=== PATIENT | male | born 1950 | race Caucasian/White ===

== ENCOUNTER 2021-01-16 09:24 | Inpatient (IN) | payer MEDICARE, OTHER ==
[2021-01-16 10:17] VITALS: BMI 36.2
[2021-01-16] MEDS ORDERED: Piperacillin/Tazobactam 3.375 GM in Sodium Chloride 0.9% 100 ML IVPB SCH (10:30)
[2021-01-16] MEDS ORDERED: Ondansetron PF 4 MG/2 ML Vial IVP PRN (10:40)
[2021-01-16] MEDS ORDERED: HYDROcodone/Acetaminophen 5/325 mg Tablet PO PRN (10:40)
[2021-01-16] MEDS ORDERED: Acetaminophen 325 MG TAB PO PRN (10:40)
[2021-01-16] MEDS ORDERED: Dextrose 50% Abboject 50 ML SYRINGE SLOW IVP PRN (10:42)
[2021-01-16] MEDS ORDERED: Dextrose 5% in Water 1,000 ML IV PRN (10:42)
[2021-01-16] MEDS ORDERED: FLU VACC QS2021-22(65YR UP)/PF 240 MCG/0.7 ML SYRINGE IM ONE (10:45)
[2021-01-16 13:07] LABS: #Basophils 0.1 10x3/uL (0.0-0.2); #Eosinphils 0.3 10x3/uL (0.0-0.5); #Monocytes 0.6 10x3/uL (0.0-1.1); #Neutrophils 4.6 10x3/uL (1.5-8.4); %Basophils 0.9 % (0.0-2.0); %Eosinophils 3.7 % (0.0-6.0); %Lymphocytes 31.7 % (18.0-47.0); %Monocytes 7.3 % (0.0-10.0); Hemoglobin 12.7 g/dL (13.5-17.5); Mean Corpuscular HGB CONC 33.2 g/dL (32.0-36.0); Mean Corpuscular Hemoglobin 32.6 pg (27.0-33.0); Mean Corpuscular Volume 98.2 fl (81.2-95.1); Mean Platelet Volume 9.8 fl (7.4-10.4); Platelet Count 367 10x3/uL (150-450); RBC Distribution Width 12.6 % (11.5-14.5); Red Blood Cell (RBC) Count 3.89 10x6/uL (4.32-5.72); White Blood Cell (WBC) Count 8.1 10x3/uL (3.5-10.5)
[2021-01-16] MEDS ORDERED: VANCOMYCIN 2 GRAM/400 ML BAG 2 GM in Premix Bag 1 BAG IVPB SCH (13:30)
[2021-01-16 13:53] LABS: ALT (SGPT) 23 U/L (8-55); AST (SGOT) 29 U/L (5-34); Albumin 3.8 g/dL (3.4-4.8); Alkaline Phosphatase 89 U/L (40-110); Anion Gap 15 mmol/L (10-20); BUN (Urea Nitrogen) 22 mg/dL (8.4-25.7); Bilirubin, Total 0.3 mg/dL (0.2-1.2); Calc. Creatinine Clearance 68 mL/min (70-130); Calcium 9.4 mg/dL (7.8-10.44); Carbon Dioxide 25 mmol/L (23-31); Chloride 102 mmol/L (98-107); Glucose 227 mg/dL (83-110); Potassium 4.5 mmol/L (3.5-5.1); Protein, Total 6.8 g/dL (5.8-8.1); Sodium 137 mmol/L (136-145)
[2021-01-16 14:38] LABS: ALT (SGPT) 25 U/L (8-55); AST (SGOT) 31 U/L (5-34); Albumin 3.9 g/dL (3.4-4.8); Alkaline Phosphatase 88 U/L (40-110); Anion Gap 12 mmol/L (10-20); BUN (Urea Nitrogen) 21 mg/dL (8.4-25.7); Bilirubin, Total 0.4 mg/dL (0.2-1.2); Calc. Creatinine Clearance 67 mL/min (70-130); Calcium 9.6 mg/dL (7.8-10.44); Carbon Dioxide 26 mmol/L (23-31); Chloride 103 mmol/L (98-107); Globulin 3.3 g/dL (2.4-3.5); Glucose 187 mg/dL (83-110); Potassium 4.3 mmol/L (3.5-5.1); Protein, Total 7.2 g/dL (5.8-8.1); Sodium 137 mmol/L (136-145)
[2021-01-16] MEDS: Piperacillin/Tazobactam 3.375 GM in Sodium Chloride 0.9% 100 ML IVPB SCH ×2 (14:48→22:10)
[2021-01-16] MEDS ORDERED: Piperacillin/Tazobactam 3.375 GM VIAL ONE (14:49)
[2021-01-16] MEDS: HumaLOG 300 UNITS/3 ML VIAL SC PRN (16:28)
[2021-01-16] MEDS: Amitriptyline HCl 25 MG TAB PO SCH (22:02)
[2021-01-16] MEDS: DULoxetine 30 MG CAP PO SCH (22:02)
[2021-01-16] MEDS: Atorvastatin Calcium 20 MG TAB PO SCH (22:03)
[2021-01-16] MEDS: Famotidine 20 MG TAB PO SCH ×2 (22:03→22:05)
[2021-01-16] MEDS: traZODone HCl 50 MG TAB PO SCH ×2 (22:03→22:05)
[2021-01-16] MEDS: Ezetimibe 10 MG TAB PO SCH (22:03)
[2021-01-16] MEDS: Lantus 1000 UNITS/10 ML VIAL SC SCH (22:31)
[2021-01-17] MEDS: Famotidine 20 MG TAB PO SCH ×3 (04:06→21:02)
[2021-01-17 05:54] LABS: #Basophils 0.1 10x3/uL (0.0-0.2); #Eosinphils 0.4 10x3/uL (0.0-0.5); #Monocytes 0.6 10x3/uL (0.0-1.1); #Neutrophils 3.2 10x3/uL (1.5-8.4); %Basophils 1.2 % (0.0-2.0); %Eosinophils 6.3 % (0.0-6.0); %Lymphocytes 37.6 % (18.0-47.0); %Neutrophils 46.6 % (40.0-75.0); Hemoglobin 12.1 g/dL (13.5-17.5); Mean Corpuscular HGB CONC 34.1 g/dL (32.0-36.0); Mean Corpuscular Hemoglobin 33.2 pg (27.0-33.0); Mean Corpuscular Volume 97.3 fl (81.2-95.1); Mean Platelet Volume 9.7 fl (7.4-10.4); Platelet Count 309 10x3/uL (150-450); RBC Distribution Width 12.7 % (11.5-14.5); Red Blood Cell (RBC) Count 3.65 10x6/uL (4.32-5.72); White Blood Cell (WBC) Count 6.9 10x3/uL (3.5-10.5)
[2021-01-17 06:11] LABS: ALT (SGPT) 21 U/L (8-55); AST (SGOT) 26 U/L (5-34); Albumin 3.4 g/dL (3.4-4.8); Alkaline Phosphatase 66 U/L (40-110); Anion Gap 12 mmol/L (10-20); BUN (Urea Nitrogen) 21 mg/dL (8.4-25.7); Bilirubin, Total 0.4 mg/dL (0.2-1.2); Calc. Creatinine Clearance 61 mL/min (70-130); Calcium 8.7 mg/dL (7.8-10.44); Carbon Dioxide 24 mmol/L (23-31); Chloride 106 mmol/L (98-107); Globulin 2.2 g/dL (2.4-3.5); Glucose 240 mg/dL (83-110); Potassium 4.9 mmol/L (3.5-5.1); Protein, Total 5.6 g/dL (5.8-8.1); Sodium 137 mmol/L (136-145)
[2021-01-17] MEDS: Piperacillin/Tazobactam 3.375 GM in Sodium Chloride 0.9% 100 ML IVPB SCH ×3 (06:36→21:02)
[2021-01-17] MEDS: glipiZIDE 10 MG TAB PO SCH (09:26)
[2021-01-17] MEDS: Folic Acid/Vit B Comp W-C PO SCH (09:29)
[2021-01-17] MEDS: Fenofibrate Nanocrystallized 145 MG TAB PO SCH (09:30)
[2021-01-17 10:36] LABS: Cardiac Risk 2.6 (Less than 4.5)
[2021-01-17 11:01] LABS: SARS-CoV-2 PCR by NAA Not Detected (NotDetected)
[2021-01-17 13:21] LABS: Hemoglobin A1c 11.3 % (4.0-6.0)
[2021-01-17] MEDS ORDERED: Lidocaine 1% (PF) 30 ML VIAL ONE (14:17)
[2021-01-17] MEDS ORDERED: Bupivacaine PF 0.5% 30 ML VIAL ONE (14:17)
[2021-01-17] MEDS ORDERED: Neomycin-Polymyxin 1 ML AMP ONE ×3 (14:18→15:35)
[2021-01-17] MEDS ORDERED: Sodium Bicarbonate 2.5 MEQ/5 ML VIAL ONE (14:22)
[2021-01-17] MEDS ORDERED: VANCOMYCIN 2 GRAM/400 ML BAG 2 GM in Premix Bag 1 BAG IVPB SCH (15:00)
[2021-01-17] MEDS ORDERED: VANCOMYCIN 1.75 GM/350 ML BAG 1.75 GM in Premix Bag 1 BAG IVPB SCH (15:00)
[2021-01-17] MEDS ORDERED: Ketamine 50 MG/ML (10ML VIAL) ONE (15:12)
[2021-01-17] MEDS ORDERED: PROPOFOL 60 ML ONE (15:13)
[2021-01-17] MEDS ORDERED: Sodium Chloride 0.9% 10 ML ONE (15:13)
[2021-01-17] MEDS ORDERED: traMADol HCl 50 MG TAB PO PRN (18:52)
[2021-01-17] MEDS: DULoxetine 30 MG CAP PO SCH (21:00)
[2021-01-17] MEDS: Atorvastatin Calcium 20 MG TAB PO SCH (21:00)
[2021-01-17] MEDS: Ezetimibe 10 MG TAB PO SCH (21:00)
[2021-01-17] MEDS: Amitriptyline HCl 25 MG TAB PO SCH (21:00)
[2021-01-17] MEDS: traZODone HCl 50 MG TAB PO SCH (21:01)
[2021-01-17] MEDS: Lantus 1000 UNITS/10 ML VIAL SC SCH (21:32)
[2021-01-18] MEDS: Piperacillin/Tazobactam 3.375 GM in Sodium Chloride 0.9% 100 ML IVPB SCH ×3 (05:43→22:07)
[2021-01-18] MEDS: Famotidine 20 MG TAB PO SCH ×2 (09:37→21:14)
[2021-01-18] MEDS: Folic Acid/Vit B Comp W-C PO SCH (09:38)
[2021-01-18] MEDS: glipiZIDE 10 MG TAB PO SCH (09:38)
[2021-01-18] MEDS: Fenofibrate Nanocrystallized 145 MG TAB PO SCH (09:41)
[2021-01-18] MEDS: HumaLOG 300 UNITS/3 ML VIAL SC PRN ×3 (12:45→21:15)
[2021-01-18 14:54] LABS: Vancomycin, Trough 3.5 ug/mL
[2021-01-18] MEDS ORDERED: Lantus 1000 UNITS/10 ML VIAL SC SCH (21:00)
[2021-01-18] MEDS: Amitriptyline HCl 25 MG TAB PO SCH (21:13)
[2021-01-18] MEDS: Atorvastatin Calcium 20 MG TAB PO SCH (21:13)
[2021-01-18] MEDS: DULoxetine 30 MG CAP PO SCH (21:13)
[2021-01-18] MEDS: Ezetimibe 10 MG TAB PO SCH (21:13)
[2021-01-18] MEDS: traZODone HCl 50 MG TAB PO SCH (22:11)
[2021-01-19 04:21] LABS: Anion Gap 11 mmol/L (10-20); BUN (Urea Nitrogen) 19 mg/dL (8.4-25.7); Calc. Creatinine Clearance 62 mL/min (70-130); Calcium 9.2 mg/dL (7.8-10.44); Carbon Dioxide 25 mmol/L (23-31); Chloride 106 mmol/L (98-107); Glucose 252 mg/dL (83-110); Potassium 4.8 mmol/L (3.5-5.1); Sodium 137 mmol/L (136-145)
[2021-01-19] MEDS: Piperacillin/Tazobactam 3.375 GM in Sodium Chloride 0.9% 100 ML IVPB SCH ×2 (06:46→14:31)
[2021-01-19] MEDS: HumaLOG 300 UNITS/3 ML VIAL SC PRN ×3 (06:54→17:10)
[2021-01-19] MEDS: Fenofibrate Nanocrystallized 145 MG TAB PO SCH (09:19)
[2021-01-19] MEDS: glipiZIDE 10 MG TAB PO SCH (09:19)
[2021-01-19] MEDS: Folic Acid/Vit B Comp W-C PO SCH (09:19)
[2021-01-19] MEDS: Famotidine 20 MG TAB PO SCH (09:19)
[2021-01-19 16:47] VITALS: BP 121/59; TEMP 99
[2021-01-20 14:40] LABS: Fungus Stain Final report (.)
== END 2021-01-19 18:03 | disposition home or self-care (01) | DRG 617 ==
LOC: UNDOADMIN 09:24 → CSHTELE 09:24
PROVIDERS: ADMIT Family Medicine; ATTEND Family Medicine
PROC: XW03396 Introduction of Ceftolozane/Tazobactam Anti-infective into Peripheral Vein, Percutaneous Approach, New Technology Group 6 (ICD-10-PCS; 2021-01-16)
PROC: 0Y6Q0Z3 Detachment at Left 1st Toe, Low, Open Approach (ICD-10-PCS; principal; 2021-01-17)
DX: E11.69 Type 2 diabetes mellitus with other specified complication (principal); M86.8X8 Other osteomyelitis, other site; L97.429 Non-pressure chronic ulcer of left heel and midfoot with unspecified severity; E11.621 Type 2 diabetes mellitus with foot ulcer; E11.42 Type 2 diabetes mellitus with diabetic polyneuropathy; E78.5 Hyperlipidemia, unspecified; I25.10 Atherosclerotic heart disease of native coronary artery without angina pectoris; E55.9 Vitamin D deficiency, unspecified; E53.9 Vitamin B deficiency, unspecified; N18.32 Chronic kidney disease, stage 3b; Z20.822 Contact with and (suspected) exposure to COVID-19; E11.22 Type 2 diabetes mellitus with diabetic chronic kidney disease; E78.2 Mixed hyperlipidemia; E78.00 Pure hypercholesterolemia, unspecified; M89.58 Osteolysis, other site; B95.8 Unspecified staphylococcus as the cause of diseases classified elsewhere; E11.51 Type 2 diabetes mellitus with diabetic peripheral angiopathy without gangrene; M19.90 Unspecified osteoarthritis, unspecified site; E66.9 Obesity, unspecified; K21.9 Gastro-esophageal reflux disease without esophagitis; I12.9 Hypertensive chronic kidney disease with stage 1 through stage 4 chronic kidney disease, or unspecified chronic kidney disease; Z90.49 Acquired absence of other specified parts of digestive tract; Z79.82 Long term (current) use of aspirin; Z79.4 Long term (current) use of insulin; Z79.899 Other long term (current) drug therapy; Z87.891 Personal history of nicotine dependence; Z98.42 Cataract extraction status, left eye; Z98.41 Cataract extraction status, right eye; Z88.7 Allergy status to serum and vaccine; Z68.36 Body mass index [BMI] 36.0-36.9, adult
CPT/HCPCS: 36415; 36416; 71045; 80048; 80053; 80061; 80202; 83036; 85025; 85652; 86140; 87070; 87102; 87116; 87205; 87206; 88305; 93005; 93010; C1713; J1815; J2001; J2543; J2704; J3370; J3490; S0020; U0003; U0005

== ENCOUNTER 2021-01-23 10:29 | Outpatient (CLI) | payer MEDICARE, OTHER | END 2021-01-23 10:30 | disposition home or self-care (01) | LOC: CSHWCC 10:29 | PROVIDERS: ATTEND Nurse Practitioner Family | DX: T81.89XA Other complications of procedures, not elsewhere classified, initial encounter (principal); B95.2 Enterococcus as the cause of diseases classified elsewhere; E11.40 Type 2 diabetes mellitus with diabetic neuropathy, unspecified; E11.65 Type 2 diabetes mellitus with hyperglycemia; E66.3 Overweight; I95.9 Hypotension, unspecified; L03.818 Cellulitis of other sites; L08.89 Other specified local infections of the skin and subcutaneous tissue; Z89.412 Acquired absence of left great toe | CPT/HCPCS: 97607; 99203; G0463 ==

== ENCOUNTER 2021-01-26 15:00 | Outpatient (CLI) | payer MEDICARE, OTHER | END 2021-01-26 15:01 | disposition home or self-care (01) | LOC: CSHWCC 15:00 | PROVIDERS: ATTEND Nurse Practitioner Family | DX: T81.89XD Other complications of procedures, not elsewhere classified, subsequent encounter (principal); L03.818 Cellulitis of other sites; E11.40 Type 2 diabetes mellitus with diabetic neuropathy, unspecified; E11.65 Type 2 diabetes mellitus with hyperglycemia; E66.3 Overweight; I95.9 Hypotension, unspecified; B95.2 Enterococcus as the cause of diseases classified elsewhere; L08.89 Other specified local infections of the skin and subcutaneous tissue; Z89.412 Acquired absence of left great toe ==

== ENCOUNTER 2021-02-02 14:54 | Outpatient (CLI) | payer MEDICARE, OTHER | END 2021-02-02 14:55 | disposition home or self-care (01) | LOC: CSHWCC 14:54 | PROVIDERS: ATTEND Nurse Practitioner Family | DX: T81.89XA Other complications of procedures, not elsewhere classified, initial encounter (principal); B95.2 Enterococcus as the cause of diseases classified elsewhere; E11.40 Type 2 diabetes mellitus with diabetic neuropathy, unspecified; E11.65 Type 2 diabetes mellitus with hyperglycemia; E66.3 Overweight; I95.9 Hypotension, unspecified; L03.818 Cellulitis of other sites; Z89.412 Acquired absence of left great toe ==

== ENCOUNTER 2021-02-06 08:44 | Outpatient (CLI) | payer MEDICARE, OTHER | END 2021-02-06 08:45 | disposition home or self-care (01) | LOC: CSHWCC 08:44 | PROVIDERS: ATTEND Nurse Practitioner Family | DX: T81.89XD Other complications of procedures, not elsewhere classified, subsequent encounter (principal); L03.818 Cellulitis of other sites; E11.40 Type 2 diabetes mellitus with diabetic neuropathy, unspecified; E11.65 Type 2 diabetes mellitus with hyperglycemia; B95.2 Enterococcus as the cause of diseases classified elsewhere; I95.9 Hypotension, unspecified; L08.89 Other specified local infections of the skin and subcutaneous tissue; E66.3 Overweight; Z89.412 Acquired absence of left great toe | CPT/HCPCS: 97607 ==

== ENCOUNTER 2021-02-09 08:54 | Outpatient (CLI) | payer MEDICARE, OTHER | END 2021-02-09 08:55 | disposition home or self-care (01) | LOC: CSHWCC 08:54 | PROVIDERS: ATTEND Nurse Practitioner Family | DX: T81.89XA Other complications of procedures, not elsewhere classified, initial encounter (principal); B95.2 Enterococcus as the cause of diseases classified elsewhere; E11.40 Type 2 diabetes mellitus with diabetic neuropathy, unspecified; E11.65 Type 2 diabetes mellitus with hyperglycemia; E66.3 Overweight; I95.9 Hypotension, unspecified; L03.818 Cellulitis of other sites; L08.89 Other specified local infections of the skin and subcutaneous tissue; Z89.412 Acquired absence of left great toe | CPT/HCPCS: 11042; 97605 ==

== ENCOUNTER 2021-02-16 11:03 | Outpatient (CLI) | payer MEDICARE, OTHER | END 2021-02-16 11:04 | disposition home or self-care (01) | LOC: CSHWCC 11:03 | PROVIDERS: ATTEND Nurse Practitioner Family | DX: T81.89XS Other complications of procedures, not elsewhere classified, sequela (principal); I95.9 Hypotension, unspecified; E11.40 Type 2 diabetes mellitus with diabetic neuropathy, unspecified; E11.65 Type 2 diabetes mellitus with hyperglycemia; E66.3 Overweight; L03.818 Cellulitis of other sites; B95.2 Enterococcus as the cause of diseases classified elsewhere; L08.89 Other specified local infections of the skin and subcutaneous tissue; Z89.412 Acquired absence of left great toe ==

== ENCOUNTER 2021-02-20 09:15 | Outpatient (CLI) | payer MEDICARE, OTHER | END 2021-02-20 09:16 | disposition home or self-care (01) | LOC: CSHWCC 09:15 | PROVIDERS: ATTEND Nurse Practitioner Family | DX: T81.89XD Other complications of procedures, not elsewhere classified, subsequent encounter (principal); E11.65 Type 2 diabetes mellitus with hyperglycemia; E11.40 Type 2 diabetes mellitus with diabetic neuropathy, unspecified; B95.2 Enterococcus as the cause of diseases classified elsewhere; E66.3 Overweight; I95.9 Hypotension, unspecified; L03.818 Cellulitis of other sites; L08.89 Other specified local infections of the skin and subcutaneous tissue; Z89.412 Acquired absence of left great toe ==

== ENCOUNTER 2021-02-23 12:35 | Outpatient (CLI) | payer MEDICARE, OTHER | END 2021-02-23 12:36 | disposition home or self-care (01) | LOC: CSHWCC 12:35 | PROVIDERS: ATTEND Nurse Practitioner Family | DX: T81.89XD Other complications of procedures, not elsewhere classified, subsequent encounter (principal); E11.40 Type 2 diabetes mellitus with diabetic neuropathy, unspecified; E11.65 Type 2 diabetes mellitus with hyperglycemia; L03.818 Cellulitis of other sites; B95.2 Enterococcus as the cause of diseases classified elsewhere; E66.3 Overweight; I95.9 Hypotension, unspecified; L08.89 Other specified local infections of the skin and subcutaneous tissue; Z89.412 Acquired absence of left great toe ==

== ENCOUNTER 2021-02-27 14:55 | Outpatient (CLI) | payer MEDICARE, OTHER | END 2021-02-27 14:56 | disposition home or self-care (01) | LOC: CSHWCC 14:55 | PROVIDERS: ATTEND Nurse Practitioner Family | DX: T81.89XD Other complications of procedures, not elsewhere classified, subsequent encounter (principal); I95.9 Hypotension, unspecified; L08.89 Other specified local infections of the skin and subcutaneous tissue; B95.2 Enterococcus as the cause of diseases classified elsewhere; E11.40 Type 2 diabetes mellitus with diabetic neuropathy, unspecified; E11.65 Type 2 diabetes mellitus with hyperglycemia; E66.3 Overweight; L03.818 Cellulitis of other sites; Z89.412 Acquired absence of left great toe ==

== ENCOUNTER 2021-03-06 15:28 | Outpatient (CLI) | payer MEDICARE, OTHER | END 2021-03-06 15:29 | disposition home or self-care (01) | LOC: CSHWCC 15:28 | PROVIDERS: ATTEND Nurse Practitioner Family | DX: T81.89XD Other complications of procedures, not elsewhere classified, subsequent encounter (principal) ==

== ENCOUNTER 2021-03-30 09:42 | Outpatient (CLI) | payer MEDICARE, OTHER | END 2021-03-30 09:43 | disposition home or self-care (01) | LOC: CSHWCC 09:42 | PROVIDERS: ATTEND Nurse Practitioner Family | DX: T81.89XS Other complications of procedures, not elsewhere classified, sequela (principal) | CPT/HCPCS: 97139; G0463; 99212 ==

== ENCOUNTER 2024-01-13 08:33 | Inpatient (IN) | payer MEDICARE, OTHER ==
[2024-01-13] MEDS ORDERED: Piperacillin/Tazobactam 3.375 GM VIAL ONE (09:29)
[2024-01-13 09:40] LABS: #Basophils 0.04 10x3/uL (0.0-0.2); #Eosinophils 0.39 10x3/uL (0.0-0.5); #Monocytes 0.81 10x3/uL (0.0-1.1); #Neutrophils 5.65 10x3/uL (1.5-8.4); %Basophils 0.4 % (0.0-2.0); %Eosinophils 4.2 % (0.0-6.0); %Lymphocytes 24.6 % (18.0-47.0); %Monocytes 8.8 % (0.0-10.0); %Neutrophils 61.6 % (40.0-75.0); Hematocrit 37.2 % (38.8-50.0); Hemoglobin 12.5 g/dL (13.5-17.5); Mean Corpuscular HGB CONC 33.6 g/dL (32.0-36.0); Mean Corpuscular Hemoglobin 32.7 pg (27.0-33.0); Mean Corpuscular Volume 97.4 fL (81.2-95.1); Mean Platelet Volume 9.2 fL (7.4-10.4); Platelet Count 421 10x3/uL (150-450); RBC Distribution Width 13.8 % (11.5-14.5); Red Blood Cell (RBC) Count 3.82 10x6/uL (4.32-5.72); White Blood Cell (WBC) Count 9.2 10x3/uL (3.5-10.5)
[2024-01-13 09:51] LABS: PTT 30.7 sec (22.0-33.0); Prothrombin Time 11.3 sec (9.5-12.1)
[2024-01-13 09:52] LABS: ALT (SGPT) 21 U/L (8-55); AST (SGOT) 24 U/L (5-34); Albumin 3.3 g/dL (3.4-4.8); Alkaline Phosphatase 53 U/L (40-110); Anion Gap 14 mmol/L (10-20); BUN (Urea Nitrogen) 41 mg/dL (8.4-25.7); Bilirubin, Total 0.4 mg/dL (0.2-1.2); Calc. Creatinine Clearance 0 mL/min (70-130); Calcium 10.2 mg/dL (7.8-10.44); Carbon Dioxide 24 mmol/L (23-31); Chloride 104 mmol/L (98-107); Estimated GFR 26; Globulin 4.4 g/dL (2.4-3.5); Glucose 69 mg/dL (83-110); Potassium 3.8 mmol/L (3.5-5.1); Protein, Total 7.7 g/dL (5.8-8.1); Sodium 138 mmol/L (136-145)
[2024-01-13] MEDS ORDERED: Acetaminophen 325 MG TAB PO PRN (12:40)
[2024-01-13] MEDS ORDERED: Dextrose 5% in Water 1,000 ML IV PRN (12:43)
[2024-01-13] MEDS ORDERED: HYDROcodone/Acetaminophen 5/325 mg Tablet PO PRN (12:43)
[2024-01-13] MEDS ORDERED: Glucagon 1 MG/ML KIT IM PRN (12:43)
[2024-01-13 14:35] VITALS: BMI 35.9
[2024-01-13] MEDS: Sodium Bicarbonate 50 MEQ, Admixture Fee 1 EACH in Sodium Chloride 0.45% 1,000 ML IV SCH (17:42)
[2024-01-13] MEDS: Heparin 5,000 UNITS/ML VIAL SC SCH (17:57)
[2024-01-13] MEDS: Sodium Bicarbonate 50 MEQ in Sodium Chloride 0.45% 1,000 ML IV SCH (17:57)
[2024-01-13] MEDS: Piperacillin/Tazobactam 3.375 GM in Sodium Chloride 0.9% 100 ML IVPB SCH ×2 (18:47→22:21)
[2024-01-13] MEDS: Ezetimibe 10 MG TAB PO SCH (22:24)
[2024-01-14] MEDS: DULoxetine 60 MG CAP PO SCH
[2024-01-14 04:28] LABS: #Basophils 0.06 10x3/uL (0.0-0.2); #Eosinophils 0.37 10x3/uL (0.0-0.5); #Monocytes 0.63 10x3/uL (0.0-1.1); #Neutrophils 2.95 10x3/uL (1.5-8.4); %Basophils 0.9 % (0.0-2.0); %Eosinophils 5.7 % (0.0-6.0); %Lymphocytes 37.8 % (18.0-47.0); %Monocytes 9.7 % (0.0-10.0); %Neutrophils 45.4 % (40.0-75.0); Hematocrit 33.5 % (38.8-50.0); Hemoglobin 11.3 g/dL (13.5-17.5); Mean Corpuscular HGB CONC 33.7 g/dL (32.0-36.0); Mean Corpuscular Hemoglobin 32.9 pg (27.0-33.0); Mean Corpuscular Volume 97.7 fL (81.2-95.1); Mean Platelet Volume 9.1 fL (7.4-10.4); Platelet Count 373 10x3/uL (150-450); RBC Distribution Width 13.8 % (11.5-14.5); Red Blood Cell (RBC) Count 3.43 10x6/uL (4.32-5.72); White Blood Cell (WBC) Count 6.5 10x3/uL (3.5-10.5)
[2024-01-14 04:47] LABS: Anion Gap 12 mmol/L (10-20); BUN (Urea Nitrogen) 36 mg/dL (8.4-25.7); Calc. Creatinine Clearance 52 mL/min (70-130); Calcium 9.1 mg/dL (7.8-10.44); Carbon Dioxide 23 mmol/L (23-31); Chloride 107 mmol/L (98-107); Estimated GFR 33; Glucose 79 mg/dL (83-110); Potassium 3.7 mmol/L (3.5-5.1); Sodium 138 mmol/L (136-145)
[2024-01-14] MEDS: Piperacillin/Tazobactam 3.375 GM in Sodium Chloride 0.9% 100 ML IVPB SCH (06:16)
[2024-01-14] MEDS: Pantoprazole DR 40 MG TAB PO SCH (08:50)
[2024-01-14] MEDS: Dextrose 5 % And 0.9 % NaCl 1,000 ML IV SCH (08:51)
[2024-01-14] MEDS ORDERED: Bupivacaine PF 0.5% 30 ML VIAL ONE (12:55)
[2024-01-14] MEDS ORDERED: Neomycin-Polymyxin 1 ML AMP ONE (12:57)
[2024-01-14 13:18] LABS: Hemoglobin A1c 7.2 % (4.0-6.0)
[2024-01-14] MEDS ORDERED: fentaNYL 50 mcg/mL 1 mL Vial ONE (14:22)
[2024-01-14] MEDS ORDERED: PROPOFOL 20 ML ONE ×2 (14:22→15:18)
[2024-01-14] MEDS ORDERED: Lidocaine 1% PF 5 ML VIAL ONE (14:23)
[2024-01-14] MEDS ORDERED: Ondansetron PF 4 MG/2 ML Vial ONE (15:10)
[2024-01-14] MEDS ORDERED: Dexamethasone 4 mg/ml Vial ONE (15:10)
[2024-01-14] MEDS: Dextrose 50% Abboject 50 ML SYRINGE SLOW IVP PRN (17:09)
[2024-01-14] MEDS: Amitriptyline HCl 25 MG TAB PO SCH (20:43)
[2024-01-14] MEDS: Atorvastatin Calcium 20 MG TAB PO SCH (20:43)
[2024-01-14] MEDS: Losartan 50 MG TAB PO SCH (22:50)
[2024-01-15 04:33] LABS: #Basophils 0.02 10x3/uL (0.0-0.2); #Monocytes 0.63 10x3/uL (0.0-1.1); #Neutrophils 8.24 10x3/uL (1.5-8.4); %Basophils 0.2 % (0.0-2.0); %Lymphocytes 14.7 % (18.0-47.0); %Neutrophils 78.8 % (40.0-75.0); Hematocrit 33.2 % (38.8-50.0); Hemoglobin 11.1 g/dL (13.5-17.5); Mean Corpuscular HGB CONC 33.4 g/dL (32.0-36.0); Mean Corpuscular Volume 98.8 fL (81.2-95.1); Mean Platelet Volume 9.4 fL (7.4-10.4); Platelet Count 390 10x3/uL (150-450); RBC Distribution Width 13.9 % (11.5-14.5); Red Blood Cell (RBC) Count 3.36 10x6/uL (4.32-5.72); White Blood Cell (WBC) Count 10.5 10x3/uL (3.5-10.5)
[2024-01-15 04:40] LABS: Anion Gap 13 mmol/L (10-20); BUN (Urea Nitrogen) 27 mg/dL (8.4-25.7); Calc. Creatinine Clearance 52 mL/min (70-130); Calcium 8.9 mg/dL (7.8-10.44); Carbon Dioxide 21 mmol/L (23-31); Chloride 107 mmol/L (98-107); Estimated GFR 33; Glucose 244 mg/dL (83-110); Potassium 4.1 mmol/L (3.5-5.1); Sodium 137 mmol/L (136-145)
[2024-01-15] MEDS: Insulin Lispro 100 UNIT/ML 10 ML VIAL SC PRN (06:23)
[2024-01-15] MEDS: Aspirin 81 mg Enteric Coated Tablet PO SCH (10:19)
[2024-01-15] MEDS: Fenofibrate Nanocrystallized 145 MG TAB PO SCH (10:19)
[2024-01-15] MEDS: Multivit, Therapeutic 1 TAB PO SCH (10:19)
[2024-01-15 12:45] VITALS: BMI 35.9
[2024-01-15] MEDS: Carvedilol 6.25 MG TAB PO SCH (17:41)
[2024-01-15] MEDS: Lantus 1000 UNITS/10 ML VIAL SC SCH (20:30)
[2024-01-16 04:24] LABS: #Basophils 0.05 10x3/uL (0.0-0.2); #Eosinophils 0.15 10x3/uL (0.0-0.5); #Monocytes 0.66 10x3/uL (0.0-1.1); #Neutrophils 3.91 10x3/uL (1.5-8.4); %Basophils 0.6 % (0.0-2.0); %Eosinophils 1.9 % (0.0-6.0); %Lymphocytes 39.8 % (18.0-47.0); %Monocytes 8.3 % (0.0-10.0); Hematocrit 30.2 % (38.8-50.0); Hemoglobin 10.2 g/dL (13.5-17.5); Mean Corpuscular HGB CONC 33.8 g/dL (32.0-36.0); Mean Corpuscular Hemoglobin 33.9 pg (27.0-33.0); Mean Corpuscular Volume 100.3 fL (81.2-95.1); Mean Platelet Volume 9.5 fL (7.4-10.4); Platelet Count 362 10x3/uL (150-450); RBC Distribution Width 14.2 % (11.5-14.5); Red Blood Cell (RBC) Count 3.01 10x6/uL (4.32-5.72)
[2024-01-16 04:29] LABS: Anion Gap 11 mmol/L (10-20); BUN (Urea Nitrogen) 26 mg/dL (8.4-25.7); Calc. Creatinine Clearance 58 mL/min (70-130); Calcium 8.7 mg/dL (7.8-10.44); Carbon Dioxide 22 mmol/L (23-31); Chloride 109 mmol/L (98-107); Estimated GFR 38; Glucose 165 mg/dL (83-110); Sodium 138 mmol/L (136-145)
[2024-01-17 04:05] LABS: #Basophils 0.04 10x3/uL (0.0-0.2); #Eosinophils 0.44 10x3/uL (0.0-0.5); #Monocytes 0.65 10x3/uL (0.0-1.1); #Neutrophils 3.38 10x3/uL (1.5-8.4); %Basophils 0.5 % (0.0-2.0); %Lymphocytes 38.1 % (18.0-47.0); %Monocytes 8.9 % (0.0-10.0); %Neutrophils 46.2 % (40.0-75.0); Hematocrit 31.6 % (38.8-50.0); Hemoglobin 10.6 g/dL (13.5-17.5); Mean Corpuscular HGB CONC 33.5 g/dL (32.0-36.0); Mean Corpuscular Hemoglobin 33.5 pg (27.0-33.0); Mean Platelet Volume 9.5 fL (7.4-10.4); Platelet Count 364 10x3/uL (150-450); RBC Distribution Width 14.1 % (11.5-14.5); Red Blood Cell (RBC) Count 3.16 10x6/uL (4.32-5.72); White Blood Cell (WBC) Count 7.3 10x3/uL (3.5-10.5)
[2024-01-17 04:13] LABS: Anion Gap 12 mmol/L (10-20); BUN (Urea Nitrogen) 24 mg/dL (8.4-25.7); Calc. Creatinine Clearance 62 mL/min (70-130); Calcium 8.9 mg/dL (7.8-10.44); Carbon Dioxide 22 mmol/L (23-31); Chloride 108 mmol/L (98-107); Estimated GFR 41; Glucose 135 mg/dL (83-110); Potassium 3.8 mmol/L (3.5-5.1); Sodium 138 mmol/L (136-145)
[2024-01-17 12:31] VITALS: BP 128/62; TEMP 97.9
== END 2024-01-17 15:56 | disposition home or self-care (01) | DRG 617 ==
LOC: CSHERS 08:33 → CSHTELE 14:30
PROVIDERS: ADMIT Internal Medicine; ATTEND Internal Medicine
PROC: 0Y6T0Z0 Detachment at Right 3rd Toe, Complete, Open Approach (ICD-10-PCS; principal; 2024-01-14)
PROC: 0Y6V0Z0 Detachment at Right 4th Toe, Complete, Open Approach (ICD-10-PCS; 2024-01-14)
PROC: 0Y6W0Z0 Detachment at Left 4th Toe, Complete, Open Approach (ICD-10-PCS; 2024-01-14)
DX: E11.69 Type 2 diabetes mellitus with other specified complication (principal); M86.9 Osteomyelitis, unspecified; E11.22 Type 2 diabetes mellitus with diabetic chronic kidney disease; N18.30 Chronic kidney disease, stage 3 unspecified; E11.65 Type 2 diabetes mellitus with hyperglycemia; E11.51 Type 2 diabetes mellitus with diabetic peripheral angiopathy without gangrene; N17.9 Acute kidney failure, unspecified; I25.10 Atherosclerotic heart disease of native coronary artery without angina pectoris; I12.9 Hypertensive chronic kidney disease with stage 1 through stage 4 chronic kidney disease, or unspecified chronic kidney disease; E11.42 Type 2 diabetes mellitus with diabetic polyneuropathy; E78.2 Mixed hyperlipidemia; K21.9 Gastro-esophageal reflux disease without esophagitis; Z98.890 Other specified postprocedural states; Z79.899 Other long term (current) drug therapy; Z79.01 Long term (current) use of anticoagulants; Z79.4 Long term (current) use of insulin
CPT/HCPCS: 36415; 36416; 71045; 80048; 80053; 83036; 85025; 85610; 85730; 86140; 87040; 87070; 87077; 87102; 87116; 87186; 87205; 87206; 88305; 88311; 93005; 93010; 96374; 97139; J0665; J1100; J1815; J2405; J2543; J2704; J3010; J7042; J7999

== ENCOUNTER 2024-01-21 09:16 | Outpatient (CLI) | payer MEDICARE, OTHER | END 2024-01-21 09:17 | disposition home or self-care (01) | LOC: CSHWCC 09:16 | PROVIDERS: ATTEND Nurse Practitioner Family | DX: E11.621 Type 2 diabetes mellitus with foot ulcer (principal); L97.512 Non-pressure chronic ulcer of other part of right foot with fat layer exposed; L97.522 Non-pressure chronic ulcer of other part of left foot with fat layer exposed; G90.09 Other idiopathic peripheral autonomic neuropathy; E11.22 Type 2 diabetes mellitus with diabetic chronic kidney disease; N18.30 Chronic kidney disease, stage 3 unspecified; E11.59 Type 2 diabetes mellitus with other circulatory complications | CPT/HCPCS: 11042; 97605 ==

== ENCOUNTER 2024-01-27 16:20 | Outpatient (CLI) | payer MEDICARE, OTHER | END 2024-01-27 16:21 | disposition home or self-care (01) | LOC: CSHWCC 16:20 | PROVIDERS: ATTEND Nurse Practitioner Family | DX: E11.621 Type 2 diabetes mellitus with foot ulcer (principal); L97.522 Non-pressure chronic ulcer of other part of left foot with fat layer exposed; L97.512 Non-pressure chronic ulcer of other part of right foot with fat layer exposed; E11.51 Type 2 diabetes mellitus with diabetic peripheral angiopathy without gangrene; E11.22 Type 2 diabetes mellitus with diabetic chronic kidney disease; N18.30 Chronic kidney disease, stage 3 unspecified; G90.09 Other idiopathic peripheral autonomic neuropathy | CPT/HCPCS: 11042; 97605 ==

== ENCOUNTER 2024-02-03 16:03 | Outpatient (CLI) | payer MEDICARE, OTHER | END 2024-02-03 16:04 | disposition home or self-care (01) | LOC: CSHWCC 16:03 | PROVIDERS: ATTEND Nurse Practitioner Family | DX: E11.621 Type 2 diabetes mellitus with foot ulcer (principal); L97.522 Non-pressure chronic ulcer of other part of left foot with fat layer exposed; L97.512 Non-pressure chronic ulcer of other part of right foot with fat layer exposed; E11.51 Type 2 diabetes mellitus with diabetic peripheral angiopathy without gangrene; E11.22 Type 2 diabetes mellitus with diabetic chronic kidney disease; N18.30 Chronic kidney disease, stage 3 unspecified; G90.09 Other idiopathic peripheral autonomic neuropathy | CPT/HCPCS: 11042; 97605 ==

== ENCOUNTER 2024-02-10 15:16 | Outpatient (CLI) | payer MEDICARE, OTHER | END 2024-02-10 15:17 | disposition home or self-care (01) | LOC: CSHWCC 15:16 | PROVIDERS: ATTEND Nurse Practitioner Family | DX: E11.621 Type 2 diabetes mellitus with foot ulcer (principal); L97.512 Non-pressure chronic ulcer of other part of right foot with fat layer exposed; L97.522 Non-pressure chronic ulcer of other part of left foot with fat layer exposed; E11.59 Type 2 diabetes mellitus with other circulatory complications; E11.22 Type 2 diabetes mellitus with diabetic chronic kidney disease; N18.30 Chronic kidney disease, stage 3 unspecified; G90.09 Other idiopathic peripheral autonomic neuropathy | CPT/HCPCS: 11042; 99212; G0463 ==

== ENCOUNTER 2024-02-17 15:36 | Outpatient (CLI) | payer MEDICARE, OTHER | END 2024-02-17 15:37 | disposition home or self-care (01) | LOC: CSHWCC 15:36 | PROVIDERS: ATTEND Nurse Practitioner Family | DX: E11.621 Type 2 diabetes mellitus with foot ulcer (principal); L97.522 Non-pressure chronic ulcer of other part of left foot with fat layer exposed; L97.512 Non-pressure chronic ulcer of other part of right foot with fat layer exposed; E11.51 Type 2 diabetes mellitus with diabetic peripheral angiopathy without gangrene; E11.22 Type 2 diabetes mellitus with diabetic chronic kidney disease; E11.42 Type 2 diabetes mellitus with diabetic polyneuropathy | CPT/HCPCS: 11042 ==

== ENCOUNTER 2024-02-24 14:50 | Outpatient (CLI) | payer MEDICARE, OTHER | END 2024-02-24 14:51 | disposition home or self-care (01) | LOC: CSHWCC 14:50 | PROVIDERS: ATTEND Nurse Practitioner Family | DX: E11.621 Type 2 diabetes mellitus with foot ulcer (principal); L97.522 Non-pressure chronic ulcer of other part of left foot with fat layer exposed; L97.512 Non-pressure chronic ulcer of other part of right foot with fat layer exposed; E11.51 Type 2 diabetes mellitus with diabetic peripheral angiopathy without gangrene; E11.42 Type 2 diabetes mellitus with diabetic polyneuropathy; E11.22 Type 2 diabetes mellitus with diabetic chronic kidney disease; N18.30 Chronic kidney disease, stage 3 unspecified | CPT/HCPCS: 11042; 87070; 87077; 87186; 87205 ==

== ENCOUNTER 2024-03-02 15:59 | Outpatient (CLI) | payer MEDICARE, OTHER | END 2024-03-02 16:00 | disposition home or self-care (01) | LOC: CSHWCC 15:59 | PROVIDERS: ATTEND Nurse Practitioner Family | DX: E11.621 Type 2 diabetes mellitus with foot ulcer (principal); L97.522 Non-pressure chronic ulcer of other part of left foot with fat layer exposed; L97.512 Non-pressure chronic ulcer of other part of right foot with fat layer exposed; E11.51 Type 2 diabetes mellitus with diabetic peripheral angiopathy without gangrene; G90.09 Other idiopathic peripheral autonomic neuropathy; E11.22 Type 2 diabetes mellitus with diabetic chronic kidney disease; N18.30 Chronic kidney disease, stage 3 unspecified | CPT/HCPCS: 11042; G0463; 99213 ==

== ENCOUNTER 2024-03-09 14:40 | Outpatient (CLI) | payer MEDICARE, OTHER | END 2024-03-09 14:41 | disposition home or self-care (01) | LOC: CSHWCC 14:40 | PROVIDERS: ATTEND Nurse Practitioner Family | DX: E11.621 Type 2 diabetes mellitus with foot ulcer (principal); L97.522 Non-pressure chronic ulcer of other part of left foot with fat layer exposed; L97.512 Non-pressure chronic ulcer of other part of right foot with fat layer exposed; E11.51 Type 2 diabetes mellitus with diabetic peripheral angiopathy without gangrene; E11.22 Type 2 diabetes mellitus with diabetic chronic kidney disease; N18.30 Chronic kidney disease, stage 3 unspecified; G90.09 Other idiopathic peripheral autonomic neuropathy | CPT/HCPCS: 11042 ==

== ENCOUNTER 2024-03-23 15:31 | Outpatient (CLI) | payer MEDICARE, OTHER | END 2024-03-23 15:32 | disposition home or self-care (01) | LOC: CSHWCC 15:31 | PROVIDERS: ATTEND Nurse Practitioner Family | DX: E11.621 Type 2 diabetes mellitus with foot ulcer (principal); L97.512 Non-pressure chronic ulcer of other part of right foot with fat layer exposed; L97.522 Non-pressure chronic ulcer of other part of left foot with fat layer exposed; G90.09 Other idiopathic peripheral autonomic neuropathy; E11.22 Type 2 diabetes mellitus with diabetic chronic kidney disease; N18.30 Chronic kidney disease, stage 3 unspecified; E11.59 Type 2 diabetes mellitus with other circulatory complications | CPT/HCPCS: 97597 ==

== ENCOUNTER 2024-03-31 13:32 | Outpatient (CLI) | payer MEDICARE, OTHER | END 2024-03-31 13:33 | disposition home or self-care (01) | LOC: CSHWCC 13:32 | PROVIDERS: ATTEND Nurse Practitioner Family | DX: E11.621 Type 2 diabetes mellitus with foot ulcer (principal); L97.512 Non-pressure chronic ulcer of other part of right foot with fat layer exposed; L97.522 Non-pressure chronic ulcer of other part of left foot with fat layer exposed; G90.09 Other idiopathic peripheral autonomic neuropathy; E11.22 Type 2 diabetes mellitus with diabetic chronic kidney disease; N18.30 Chronic kidney disease, stage 3 unspecified; E11.59 Type 2 diabetes mellitus with other circulatory complications | CPT/HCPCS: 11042 ==